=== PATIENT | female | born 1995 | race African-American/Black ===

== ENCOUNTER 2021-07-07 12:32 | Outpatient (CLI) | payer OTHER ==
[~2021-07-07] VITALS: Ht 160 cm; Wt 85.0 kg
[2021-07-07] MEDS ORDERED: PRENTAB9 PO (12:53)
[2021-07-07 12:57] VITALS: BP 107/70
[2021-07-07] MEDS ORDERED: TERBUTALINE SULFATE 1 MG/ML VIAL (J3105) SC ONE (13:45)
[2021-07-07] MEDS ORDERED: TERBUTALINE SULFATE 1 MG/ML VIAL (J3105) As Ordered ONE (13:46)
[2021-07-07 14:14] VITALS: BP 119/74
== END 2021-07-07 15:47 | disposition home or self-care (01) ==
LOC: M LDO 12:32
PROVIDERS: ATTEND Obstetrics & Gynecology
DX: O32.1XX0 Maternal care for breech presentation, not applicable or unspecified (principal); Z3A.37 37 weeks gestation of pregnancy
CPT/HCPCS: 59025; 59412; 76815; 96372; G0463; J3105